=== PATIENT | female | born 1990 | race Two or more races ===

== ENCOUNTER 2019-05-16 11:03 | Emergency (ER) | payer OTHER ==
[~2019-05-16] VITALS: Ht 157.5 cm; Wt 63.5 kg
[2019-05-16 11:08] VITALS: BP 138/108
== END 2019-05-16 11:44 | disposition home or self-care (01) ==
LOC: ER 11:03
DX: U07.1 COVID-19 (principal); R50.9 Fever, unspecified; R00.0 Tachycardia, unspecified; R51 Headache; J02.8 Acute pharyngitis due to other specified organisms; B97.29 Other coronavirus as the cause of diseases classified elsewhere
CPT/HCPCS: 36415